=== PATIENT | female | born 1960 | race Caucasian/White ===

== ENCOUNTER 2024-04-27 15:36 | Emergency (ER) | payer BC, SELFPAY ==
[2024-04-27 15:40] VITALS: BP 137/102
--- NOTE | 2024-04-27 15:41 | ED.PDOC.TRB ---
ED Provider Triage
-
Patient seen by provider in Triage?: Seen in Triage
Attestation: A medical screening examination has been initiated by a qualified medical provider. Based on the assessment performed at this time, it has been determined that an emergent medical condition may exist and the patient has been informed
that further medical evaluation and possible additional diagnostic testing may be needed.
HPI: 63-year-old female with history of asthma presents to the emergency department for evaluation of chest pressure and wheezing that began last night. She took her first dose last night of cholestyramine as well as colestipol due to GI issues she
was having related to her gallbladder removal. She feels though these may have provoked an allergic reaction. She treated her symptoms last night with her nebulizer and albuterol inhalers and felt improved however today continues to have a raspy
voice, chest pressure, and some wheezing. She states her primary care physician is concerned she is having a cardiac emergency
GENERAL: Alert , in no apparent distress
EYE: No visual abnormalities.
NECK: Trachea midline
ENT: No visible abnormalities.
LUNGS: No acute respiratory distress
NEUROLOGICAL: Alert and oriented
SKIN: Skin intact. No visible changes.
MUSCULOSKELETAL: Moving extremities normally
PSYCH: Normal and appropriate interaction.
Assessment: Patient's lungs are clear. No evidence of wheezing. Will check EKG and chest x-ray, do not feel strongly that this patient requires cardiac lab rule out
This is a medical evaluation conducted in person to initiate diagnostic evaluation and provide initial therapeutics. Please see further documentation by the treating clinician.
[2024-04-27 16:20] VITALS: BP 127/71
[2024-04-27 16:22] VITALS: BMI 30.7
--- NOTE | 2024-04-27 16:57 | ED.GENMED ---
History of Present Illness
<Erika Patterson PA-C - Last Filed: 04/27/24 18:56>
General
Chief Complaint: Breathing Problem
Source: patient
Exam Limitations: none
Time Seen by Provider: 04/27/24 16:34
Nursing documentation reviewed up to this point in time: agreed with
History of Present Illness
History of Present Illness:
63-year-old female with a past medical history of asthma presenting the emergency department today with concerns of chest pressure and asthma attack that occurred last night. Patient reports that she had a past history of biliary colic and had her
gallbladder removed. Since then, she has had persistent diarrhea and she was put on cholestyramine and colestipol by her primary last week. Patient states that since starting the medication, she has developed a generalized feeling of being unwell
and has significant asthma attack last night which she had used her rescue inhaler. Patient believes this is a reaction to the medication. Patient that her diarrhea did improve with medications, she denies any abdominal pain, denies any fevers or
chills. Patient called her primary care provider recommended evaluation in the emergency department to rule out cardiac cause of her symptoms. Patient denies any back pain.
Past History
<Erika Patterson PA-C - Last Filed: 04/27/24 18:56>
Past History
ED Past Medical History: Asthma, GERD, Hypercholesterolemia and Other (Hep C,)
ED Past Surgical History: Cholecystectomy and Gynecological (Breast cyst X 2 with surgery)
Social History
Tobacco: Non-smoker
Alcohol: Occasional
Drug: None
Personal:
Living: with family
Employment: Employed
Family History
Family History: Hypertension
Review of Systems
<Erika Patterson PA-C - Last Filed: 04/27/24 18:56>
Review of Systems
All Other Systems: ROS reviewed and negative except as documented in HPI and ROS
Phy Exam
<Erika Patterson PA-C - Last Filed: 04/27/24 18:56>
Physical Exam
Physical Exam:
General: Patient is well appearing and in no acute distress; non-toxic
Skin: Warm and dry, no rashes or lesions
Head: Normocephalic, atraumatic
Eyes: Sclera non-icteric. EOMs intact.
Cardiac: Regular rate and rhythm, no murmurs
Mouth: No pharyngeal erythema, uvula midline
Neck: No cervical lymphadenopathy.
Peripheral Vascular: No lower extremity swelling or edema
Pulm: Normal respiratory effort, scattered end expiratory wheezes
Neuro: CN II-XII intact, no focal neurologic deficits.
Psychiatric: Appropriate mood and affect.
Scores
<Erika Patterson PA-C - Last Filed: 04/27/24 18:56>
Heart Failure Risk
Heart Failure Risk Score: Not Applicable
PE Wells Score
Symptoms of DVT: No
No alternative diagnosis better explains the illness: No
Tachycardia with pulse > 100: No
Immobilization (>=3 days) or surgery within previous 4 weeks: No
Prior history of DVT or pulmonary embolism: No
Presence of hemoptysis: No
Presence of malignancy: No
Pulmonary Embolism Risk Score: 0
Probability of PE: Pt is low risk
<Jens Agosto DO - Last Filed: 04/27/24 21:05>
PE Wells Score
Pulmonary Embolism Risk Score: 0
Probability of PE: Pt is low risk
Course
<Erika Patterson PA-C - Last Filed: 04/27/24 18:56>
Orders/Labs/Results
Orders:
Orders
04/27/24 15:44
CR Chest - 2 Views Urgent
Comment:
Reason For Exam: cough/SOB
04/27/24 15:45
Electrocardiogram (*1) Urgent
Reason for Study: Shortness of Breath
EKG- Treatment ONCE
04/27/24 17:17
Ipratropium/Albuterol Sulfate [Duoneb] 3 ml INH R NOW STA
04/27/24 17:25
COVID-19 Antigen Urgent
Source: Nasal Swab
Complete Blood Count/With Diff Urgent
Comprehensive Metabolic Panel Urgent
Troponin I Urgent
04/27/24 17:25
04/27/24 17:25
Vital Signs
Initial and Last Documented VS:
Initial Vital Signs
Pulse Resp BP Pulse Ox
89 20 137/102 97
04/27/24 15:40 04/27/24 15:40 04/27/24 15:40 04/27/24 15:40
Last Documented Vital Signs
Temp Pulse Resp BP Pulse Ox
98.5 F 73 18 99/82 97
04/27/24 15:45 04/27/24 18:00 04/27/24 18:00 04/27/24 18:00 04/27/24 18:00
timoteo;Jens Agosto, - Last Filed: 04/27/24 21:05>
Orders/Labs/Results
Orders:
Orders
04/27/24 15:44
CR Chest - 2 Views Urgent
Comment:
Reason For Exam: cough/SOB
04/27/24 15:45
Electrocardiogram (*1) Urgent
Reason for Study: Shortness of Breath
EKG- Treatment ONCE
04/27/24 17:17
Ipratropium/Albuterol Sulfate [Duoneb] 3 ml INH R NOW STA
04/27/24 17:25
COVID-19 Antigen Urgent
Source: Nasal Swab
Complete Blood Count/With Diff Urgent
Comprehensive Metabolic Panel Urgent
Troponin I Urgent
04/27/24 17:25
04/27/24 17:25
Vital Signs
Initial and Last Documented VS:
Initial Vital Signs
Pulse Resp BP Pulse Ox
89 20 137/102 97
04/27/24 15:40 04/27/24 15:40 04/27/24 15:40 04/27/24 15:40
Last Documented Vital Signs
Temp Pulse Resp BP Pulse Ox
98.5 F 73 18 99/82 97
04/27/24 15:45 04/27/24 18:00 04/27/24 18:00 04/27/24 18:00 04/27/24 18:00
Giorgilt;Erika Patterson PA-C - Last Filed: 04/27/24 18:56>
MDM/Problems Addressed
Differential Diagnosis Includes:
Differentials include viral syndrome, asthma exacerbation, ACS, GERD, medication reaction, acute bronchitis
MDM/Problems Addressed:
63-year-old female who presents emergency department with concerns of prolonged wheezing and raspiness to her voice following asthma attack last night. Patient is also concerned she is having a reaction to medication. Of note, patient has had
diarrhea and had a recent cholecystectomy which she has been on cholestyramine to help with this. Patient believes that her asthma tach last night was related to the medication. Here in emergency department, she is well-appearing, she is not in
any respiratory distress, she is afebrile. Her EKG demonstrates normal sinus rhythm and no ischemic changes, initial troponin undetectable. CBC and CMP unremarkable. Patient states that she did use her rescue inhaler at home which did help and
she has not had to use her nebulizer machine at home. COVID swab pending. Expect patient symptoms are likely due to asthma exacerbation, patient will stop taking medication for the time being and follow-up with her primary. Patient states the
chest pressure she experiences now is the same as she feels when she has her asthma attacks. Doubt cardiac etiology to her symptoms, patient is no personal or family history of cardiac disease, no indication for repeat troponin at this time.
Patient stable for discharge. Did give standing prescription for prednisone should her symptoms worsen.
Chronic conditions affecting care:
Asthma,
<Erika Patterson PA-C - Last Filed: 04/27/24 18:56>
*Pulse Oximetry
Patient hypoxic: no
*Critical Care Note
Total Time (30-74mins, 75-104mins- exclusive of procedures): Not Applicable
Data Reviewed
Review of Other/Old Records Reveals: Records (Reviewed ER physician documentation from 05/13/2022, reviewed discharge summary from 05/16/2021 where patient was seen for asthma exacerbation and admitted)
Source: patient and records
Prescriptions/Medications Considered But Not Given:
Consider antibiotics however no clear acute bronchitis or pneumonia
<Erika Patterson PA-C - Last Filed: 04/27/24 18:56>
Patient Management
Escalation/DeEscalation of care consider admission/obs:
patient stable for dfischarge
ED Attending Note
<Erika Patterson PA-C - Last Filed: 04/27/24 18:56>
-
Portions of this chart may have been created with voice recognition software.� Occasional wrong word or��sound alike� substitutions may have occurred due to the inherent limitations of voice recognition software.
<Jens Agosto, - Last Filed: 04/27/24 21:05>
ED Attending Note
Patient seen and examined by attending physician: Yes
I performed the substantive portion of visit, reviewed & personally made and approve the management plan that is documented in note by myself or SERGIO.: Yes
ED Attending Note:
63-year-old female who presents complaining of feeling unusual, wheezy and some chest pressure after starting new medication. No rash. No itching. Discussed symptoms with her primary care provider who recommended she come to the emergency room to
rule out cardiac issue. No chest pain now.
General: Awake, Alert, Oriented X3. No acute distress.
Vitals: unremarkable
Head: Atraumatic
Eyes: Pupils equal, EOMI
Throat: Airway intact, no exudates
Neck: Trachea midline
Lungs: Clear and equal b/l, no wheezing at this time
Heart: Regular rate, no murmurs
Abd: Soft, Nontender, No pulsatile mass
Would seem a bit unusual that this medication would cause an allergic reaction or an asthma attack but certainly cannot be ruled out. Symptoms are gone now. No evidence for acute coronary syndrome with normal troponin several hours after the
onset. EKG shows no acute ischemic changes. Patient stable for discharge back to her primary care doctor.
Discharge Plan
Departure
Patient Disposition: Home (Routine Discharge)
Date of Disposition: 04/27/24
Time of Disposition: 18:29
Patient with high blood pressure during this ER visit?: Yes
Condition: Good
Discharge Problem:
Asthma
Instructions: Asthma, Adult (DC), Diarrhea, Adult ED, BLOOD PRESSURE
Prescriptions:
New
prednisone 20 mg tablet
40 mg PO DAILY 5 Days Qty: 10 0RF
No Action
fluticasone furoate-vilanterol [Breo Ellipta] 1 EACH blister with device
1 ea IH PRN PRN (Reason: allergies)
Albuterol Sulfate
1 puff inhalation PRN PRN (Reason: allergies)
Epi Pen
1 dose INJ PRN PRN (Reason: bees)
oxycodone 5 MG tablet
5 mg PO Q4HPRN PRN (Reason: breakthrough/severe pain) Qty: 7 0RF
oxycodone-acetaminophen 5 MG/325 MG tablet
1 tab PO Q6HPRN PRN (Reason: pain) Qty: 14 0RF
ondansetron 4 MG tablet,disintegrating
4 mg PO TIDPRN PRN (Reason: nausea/vomiting) Qty: 14 0RF
ibuprofen 600 MG tablet
600 mg PO Q6HPRN PRN (Reason: Chest wall pain) Qty: 20 0RF
benzonatate 100 MG capsule
100 mg PO TIDPRN PRN (Reason: Cough) Qty: 10 0RF
famotidine 20 MG tablet
20 mg PO BID Qty: 28 0RF
Rx Instructions:
Take 20 mg twice a day for 14 days
aspirin 81 MG tablet,chewable
81 mg PO DAILY Qty: 14 0RF
Rx Instructions:
Take 81 mg daily for 14 days
zinc sulfate 220 MG capsule
220 mg PO DAILY Qty: 14 0RF
Rx Instructions:
Take 220 mg daily for 14 days
cholecalciferol (vitamin D3) 1,000 UNITS tablet
2,000 units PO DAILY Qty: 28 0RF
Rx Instructions:
Take 2,000 units daily for 14 days
melatonin 5 MG tablet
5 mg PO HS Qty: 14 0RF
Rx Instructions:
Take 5 mg daily at bedtime for 14 days
ascorbic acid (vitamin C) [Vitamin C] 500 MG tablet
1,000 mg PO BID
prednisone 10 MG tablet
10 mg PO .TAPER 9 Days Qty: 20 0RF
Rx Instructions:
30mg daily x3days,
20mg daily x3days, 10mg daily x3days.
Referrals:
Charu Ochoa MD [Family Provider] -
Activity Restrictions/Additional Instructions:
You can use your nebulizer at home should you have persistent symptoms. Please follow-up with your primary care provider regarding your biliary medication. Please return to emergency department should you have persistent chest discomfort, chest
pain, coughing up blood, trouble breathing, lip or tongue swelling, lightheadedness, dizziness, syncopal episodes, or any other signs or symptoms are concerning to you.
Interventions
Interventions:
*Risk Screen - Suicide Last Done: 04/27/24 15:40
*General Assessment Last Done: 04/27/24 15:40
*Neglect/Abuse Screening Last Done: 04/27/24 15:40
ED- Fall Risk Assessment Last Done: 04/27/24 18:50
*ED COVID-19 Vaccine History Last Done: 04/27/24 16:24
*Nursing Disposition Last Done: 04/27/24 18:50
ED- Cardiac Assessment Last Done: 04/27/24 16:23
ED- Pulmonary Assessment Last Done: 04/27/24 16:24
Discharge Date and Time
Discharge Date/Time: 04/27/24 18:50
Print Language: [place]IZ[place]
[2024-04-27 17:00] VITALS: BP 96/85
[2024-04-27] MEDS: DUONEB 3 ML INH (17:25)
[2024-04-27 17:44] LABS: % Basophils 0.6 % (0-2); % Eosinophils 0.9 % (0-6); % Immature Granulocytes 0.2 % (0-0.5); % Monocytes 7.6 % (1.7-9.3); % Neutrophils 58.7 % (42.2-75.2); Absolute Basophils 0.1 10^3/uL (0-0.2); Absolute Eosinophils 0.1 10^3/uL (0-0.7); Absolute Lymphocytes 2.6 10^3/uL (1.2-3.4); Absolute Monocytes 0.6 10^3/uL (0.1-0.6); Absolute Neutrophils 4.7 10^3/uL (1.4-6.5); Hematocrit 39.3 % (37.0-47.0); Hemoglobin 13.3 g/dL (12.0-16.0); Mean Corp Hgb Conc. 33.8 g/dL (33.0-37.0); Mean Corpuscular Hgb 29.1 pg (27.0-31.0); Mean Platelet Volume 10.3 fL (7.4-10.4); Nucleated Red Blood Cells % 0 %; Platelet Count 297 10^3/uL (130-400); Red Blood Cell Count 4.57 10^6/uL (4.20-5.40)
[2024-04-27 17:53] LABS: ALT (SGPT) 28 U/L (0-35); AST (SGOT) 24 U/L (14-36); Albumin 4.3 g/dl (3.5-5.0); Alkaline Phosphatase 76 U/L (38-126); Blood Urea Nitrogen 14 mg/dl (7-17); Calcium 9.4 mg/dl (8.4-10.2); Carbon Dioxide 24 mmol/L (22-30); Chloride 107 mmol/L (98-107); Estimated Creatinine Clearance 76 ml/min; Glucose 91 mg/dl (70-99); Potassium 4.3 mmol/L (3.5-5.1); Sodium 143 mmol/L (135-145); Total Bilirubin 0.7 mg/dl (0.2-1.3); Total Protein 6.9 g/dl (6.3-8.2); eGFR > 60.00
[2024-04-27 18:00] VITALS: BP 99/82
[2024-04-27 18:04] LABS: Troponin I < 0.012 ng/ml
[2024-04-27 18:13] LABS: COVID-19 Antigen Negative (Negative)
== END 2024-04-27 18:50 | disposition home or self-care (01) ==
LOC: EMR 15:36
PROVIDERS: Physician Assistant; EMERGENCY PHYSICIAN Emergency Medicine; FAMILY PHYSICIAN Family Medicine
DX: J45.901 Unspecified asthma with (acute) exacerbation (principal); R07.89 Other chest pain; R19.7 Diarrhea, unspecified; Z11.52 Encounter for screening for COVID-19; R03.0 Elevated blood-pressure reading, without diagnosis of hypertension; K21.9 Gastro-esophageal reflux disease without esophagitis; E78.00 Pure hypercholesterolemia, unspecified; Z79.82 Long term (current) use of aspirin; Z86.19 Personal history of other infectious and parasitic diseases; Z90.49 Acquired absence of other specified parts of digestive tract; Z88.2 Allergy status to sulfonamides; Z88.7 Allergy status to serum and vaccine; Z88.8 Allergy status to other drugs, medicaments and biological substances; Z91.030 Bee allergy status
CPT/HCPCS: 99283; 94640; 71046; 80053; 84484; 85025; 87811; 93005

== ENCOUNTER → 2024-05-21 08:48 | Outpatient (REF) | payer BC, SELFPAY | LOC: HWRAD 08:48 | PROVIDERS: ATTENDING PHYSICIAN Family Medicine | DX: K91.5 Postcholecystectomy syndrome (principal) | CPT/HCPCS: 76700 ==

== ENCOUNTER → 2024-09-14 14:53 | Outpatient (REF) | payer BC, SELFPAY | LOC: HWWDC 14:53 | PROVIDERS: ATTENDING PHYSICIAN Family Medicine | DX: Z12.31 Encounter for screening mammogram for malignant neoplasm of breast (principal) | CPT/HCPCS: 77063; 77067 ==

== ENCOUNTER → 2025-05-24 12:17 | Outpatient (REF) | payer BC, SELFPAY | LOC: HWRAD 12:17 | PROVIDERS: ATTENDING PHYSICIAN Family Medicine | DX: R10.32 Left lower quadrant pain (principal) | CPT/HCPCS: 76882 ==

== ENCOUNTER → 2025-06-06 11:54 | Outpatient (REF) | payer BC, SELFPAY | LOC: HWRAD 11:54 | PROVIDERS: ATTENDING PHYSICIAN Family Medicine | DX: R10.32 Left lower quadrant pain (principal) | CPT/HCPCS: 72190 ==